=== PATIENT | male | born 1960 | race Hispanic/Latino ===

== ENCOUNTER 2017-04-01 06:22 | Day surgery (SDC) | payer MEDICARE ==
[2017-03-25 10:02] VITALS: BMI 25.1
[2017-04-01] MEDS ORDERED: Propofol 10 mg/ml Inj (20 ML) ONE (08:30)
[2017-04-01] MEDS ORDERED: Sodium Chloride 0.9% 1,000 ML IV SCH (09:15)
[2017-04-01 09:53] VITALS: BP 106/72; PULSE 55; RESP 16; TEMP 97.7; O2SAT 100
== END 2017-04-01 10:59 | disposition home or self-care (01) ==
LOC: ENDO 06:22
PROVIDERS: ATTEND Internal Medicine
DX: K92.1 Melena (principal); K57.30 Diverticulosis of large intestine without perforation or abscess without bleeding; K64.8 Other hemorrhoids; K59.09 Other constipation
CPT/HCPCS: 45378; J2001; J2704; J7040